=== PATIENT | female | born 1965 | race Caucasian/White ===

== ENCOUNTER 2016-06-19 08:13 | Inpatient (IN) ==
--- NOTE | 2016-06-19 08:50 | Emergency Department Note ---
IShaun Brooke, am scribing for, and in the presence of, Cecile Ivy DO 08:49 . IBiju Debra, DO, personally performed the services described in this documentation, ascribed by Shanda Dunn in my presence, and it is both accurate and complete 850 . Arrival - Arrival Chief Complaint: Abdominal / Flank Pain Stated Complaint: sob ED Nursing Triage Note: pt states while she was driving she had a sharp pain hit her in her epigastric/upper abd that radiated down to her lower abd- states she got short of breath and diaphoretic. pt reports having heart burn last night. Mode of Arrival: Ambulatory Limitations: No Limitations Source: Patient, RN Notes Reviewed Time Seen by Provider: 06/19/16 08:37 - History of Present Illness HPI Narrative: Patient is a 51 year old female who presents to the ED with c/o upper abdominal pain that radiates down into her LLQ. Patient says she has been having the pain , daily, for the past two months. She describes the pain as sharp and says at its worst, it is a 10 out of 10 on the pain scale. However, she says it is not that bad now. Patient was driving to work, this morning, when she experienced the sharp pain and says she also became diaphoretic. She says she does usually experience diaphoresis with the pain. She says the pain is worsened by certain movements. She still has her gallbladder and appendix. She also complains of nausea but denies any vomiting, fever, or chills. She does not have a history of alcohol abuse. She says she did have a similar episode, about four years ago , and states that she had H. Pylori. Patient says sometimes her throat feels like it is going to close but states she thinks it anxiety. Patient has no known medical problems. She has not had anything to eat since around 1930 last night. Patient take a baby ASA three times a week. Onset (ago): month(s) (2) Allergies/Adverse Reactions: Allergies Allergy/AdvReac Type Severity Reaction Status Date / Time No Known Allergies Allergy Verified 06/19/16 08:22 Review of System - Review of System 12 point system: reviewed and no additional remarkable complaints except as stated - Review of System Constitutional: Present: diaphoresis. Absent: chills, fever Respiratory: Absent: respiratory distress Gastrointestinal: Present: abdominal pain (Upper and radiates into LLQ), nausea. Absent: vomiting Skin: Absent: rash Medical,Surgical,& Family Hx - Medical History HEENT: History of: Ear Problem (surgery right ear) - Social History Smoking Status: Current every day smoker Frequency of Alcohol Use: None Type of Drug Use: None Exam Vital Signs: Vital Signs Temperature 98.6 F 06/19/16 08:18 Pulse Rate 76 06/19/16 08:18 Respiratory Rate 18 06/19/16 08:18 Blood Pressure 128/56 06/19/16 08:18 O2 Sat by Pulse Oximetry 96 06/19/16 08:18 - General General appearance: alert, in no apparent distress - Head Head exam: Present: atraumatic, normocephalic - Eye Eye exam: Present: normal appearance, PERRL, EOMI - ENT ENT exam: Present: normal exam - Neck Neck exam: Present: normal inspection - Chest Chest inspection: Present: normal inspection, symmetric chest wall rise - Respiratory Respiratory exam: Present: normal lung sounds bilaterally - Cardiovascular Cardiovascular exam: Present: regular rate, normal rhythm, normal heart sounds - Abdominal Exam Abdominal exam: Present: soft, tenderness (LUQ and RLQ). Absent: distention - Extremities Exam Extremities exam: Present: normal inspection - Back Exam Back exam: Present: normal inspection - Neurological Exam Neurological exam: Present: alert, oriented X3 - Psychiatric Psychiatric exam: Present: normal affect, normal mood - Skin Skin exam: Present: warm, dry, intact, normal color Results - Labs CBC & BMP: 06/19/16 08:39 06/19/16 08:39 Lab Results: I have reviewed the patients labs Labs: Laboratory Tests 06/19/16 06/19/16 08:39 08:39 Lymph % (Auto) 18.8 L Neut # (Auto) 8.0 H Phillips # (Auto) 1.3 H Chloride 111 H Laboratory Tests 06/19/16 08:39 Urine Urobilinogen < 2.0 H - Diagnostic Findings Procedure: Chest x-ray: report reviewed by me (No acute cardiopulmonary process demonstrated.), CT Abdomen and Pelvis: report reviewed by me (Fatty infiltration of the liver, minimal renal scarring and tiny right upper pole renal cyst. Diverticulosis of the colon. Prior tubal ligation. The wall of the right colon is thickened which could be related to colitis, inflammatory bowel disease, ischemic bowel, etc. Limited evaluation of bowel without oral contrast. Possible stenosis or other arterial pathology in the SMA approximately 24mm above the origin of the artery. Follow-up CTA mat be helpful for further evaluation.)
[2016-06-19 09:06] LABS: Basophils # 0.1 10*3/uL (0.0-0.2); Basophils % 0.4 % (0.0-0.8); Eosinophils # 0.1 10*3/uL (0.0-0.87); Eosinophils % 1.2 % (0.00-10.9); Hematocrit 45.1 VOL% (35.7-47.0); Hemoglobin 15.8 GM/DL (12.0-16.0); Immature Granulocytes % 0.3 %; Immature Granulocytes Absolute 0.04 #; Lymphocytes # 2.2 10*3/uL (1.4-4.0); Lymphocytes % 18.8 % (21.3-54.2); Mean Corpuscular Hemoglobin 32 PG (27-34); Mean Corpuscular Volume 92.2 FL (87-102); Mean Platelet Volume 10.1 FL (9.6-12.0); Monocytes # 1.3 10*3/uL (0.11-0.8); Monocytes % 10.7 % (1.7-12.7); Neutrophils % 68.6 % (38.7-73.9); Platelet Count 225 T/CUMM (130-400); Red Blood Count 4.89 MC/CUMM (3.8-5.5); Red Cell Distribution Width 13.1 % (9.3-17.3); White Blood Count 11.7 T/CUMM (4-12)
--- NOTE | 2016-06-19 09:07 | XRay Report ---
XR chest 1V portable Indication: Generalized abdominal pain, chest pain Comparison: None Technique: Single frontal view of the chest Findings: Heart size appears within normal limits. No focal consolidation, pleural effusion, or pneumothorax. Osseous and surrounding soft tissue structures demonstrate no acute normality. IMPRESSION: No acute cardiopulmonary process demonstrated. PROCEDURE INTERPRETED AT [facility] DEPARTMENT OF RADIOLOGY Final Report Signed by: Dr Chao Sierra
[2016-06-19 09:17] LABS: PT Patient Result 10.3 SECS
[2016-06-19 09:43] LABS: Alanine Aminotransferase 30 U/L (13-56); Albumin 3.8 G/DL (3.4-5.0); Alkaline Phosphatase 69 U/L (45-117); Aspartate Amino Transferase 17 U/L (0-37); Blood Urea Nitrogen 8 MG/DL (7-18); Calcium 9.1 MG/DL (8.5-10.1); Glucose 86 MG/DL (74-106); Osmolality,Calculated 282.8 MOS/KG (273-304); Potassium 4.1 MMOL/L (3.5-5.1); Sodium 144 MMOL/L (136-145); Total Protein 6.7 G/DL (6.4-8.3); Troponin I Only < 0.015 NG/ML (0.00-0.045)
[2016-06-19 10:02] LABS: Apearance,Urine CLEAR (Clear); Bacteria,Urine Occasional /HPF (Few); Bilirubin,Urine Negative (Negative); Blood, Urine Negative (Negative); Glucose,Urine (UA) Negative (Negative); Ketones,Urine Negative (Negative); Mucus,Urine Occasional /LPF (Occasional); Nitrite,Urine Negative (Negative); Protein,Urine Negative; RBC,Urine 1 /HPF (0-4); Squamous Epithelial Cell,Urine Occasional /HPF (0-10); Urine Color Yellow (Yellow); Urine Specific Gravity 1.021 (1.001-1.035); Urine Urobilinogen < 2.0 EU/DL (0.2-1.0); WBC,Urine 1 /HPF (0-6)
--- NOTE | 2016-06-19 10:45 | EKG Report ---
Stationary ECG Study [facility] ER Test Date: 06/19/2016 8:37:31 AM Pat Name: MARIA ELENA VASQUEZ Department: Room: Gender: F [place]: : 1965 Requested by: Cecile Ivy Order Number: [id number] Reading MD: INÉS MONIQUE Intervals [place] Rate: 75 P: 8 NH: 174 QRS: 1 QRSD: 80 T: 5 QT: 406 QTc: 434 Interpretive Statements SINUS RHYTHM Electronically Signed On 06-22-16 16:18:48 CDT by INÉS MONIQUE [email or web address]
--- NOTE | 2016-06-19 11:01 | CT Report ---
Referring physician: Cecile Ivy DO EXAM: CT abdomen and pelvis with contrast DATE: 06/19/2016 COMPARISON: None REASON: Generalized abdominal pain TECHNIQUE: Axial images of the abdomen and pelvis were obtained after administration of 100 cc of Omnipaque 350 IV contrast. Coronal and sagittal reformatted images were also provided. Total DLP is 894.4 mGy*cm. FINDINGS: The dependent findings in the lower lobes with cardiac fat pads. Elongation of the right lobe of the liver with fatty infiltration. No masses, dilated ducts are calcified gallstones. Calcified granuloma in normal size spleen. The pancreas and adrenal glands have an unremarkable appearance. Very minimal renal scarring and tiny right upper pole renal cyst. No renal or ureteral calculi. The abdominal aorta is normal in size with no adjacent adenopathy. Possible stenosis or other arterial pathology in the SMA approximately 24 mm above the origin. No significant dilatation of the small bowel. Diverticulosis of the colon with no evidence of diverticulitis, free air, or free fluid. The wall of the right colon is thickened. The uterus is anteverted and is position with small cysts/follicles in the ovaries. Prior tubal ligation. No acute osseous findings. IMPRESSION: Fatty infiltration of the liver, minimal renal scarring and tiny right upper pole renal cyst. Diverticulosis of the colon. Prior tubal ligation. The wall of the right colon is thickened which could be related to colitis, inflammatory bowel disease, ischemic bowel, etc. Limited evaluation of bowel without oral contrast. Possible stenosis or other arterial pathology in the SMA approximately 24 mm above the origin of the artery. Follow-up CTA may be helpful for further evaluation. The CT exam was performed using one or more of the following dose reduction techniques: Automated exposure control and adjustment of the mA and/or kV according to patient size. PROCEDURE INTERPRETED AT [facility] DEPARTMENT OF RADIOLOGY Final Report Signed by: Dr. Tabitha Samayoa
--- NOTE | 2016-06-19 12:43 | Hospitalist History & Physical ---
Assessment and Plan (1) Abdominal pain Status: Acute Assessment and plan: Admit patient to [facility]. IV fluids. Keep patient n.p.o. for now. Consult GI for recommendations. Current Visit: Yes History of Present Illness Chief complaint: abdominal pain History of present illness: Ms. Clark is a 51 year old female with a history of H. pylori and hypotension presents to the ED with complaints of upper abdominal pain that radiates down to her left lower quadrant. Patient states that while driving to work this morning she experienced a sharp pain that caused her to become short of breath and sweaty. Patient states the pain is worsened by certain movements. Patient denies any fever, chills, vomiting but reports nausea. Patient states that she has been having this pain daily for the last couple of months. Patient takes baby aspirin 3 times a week for cardiac protection has no other medical problems. She denies alcohol or drug abuse but is a everyday smoker. 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 The patient denies any other complaints in the ED at this time. Patient will be admitted to the hospitalist service for further evaluation and treatment Home Medications Medication Instructions Recorded Confirmed Type Aspirin [Aspirin EC] 81 mg PO Q3DAY 06/19/16 06/19/16 History Allergies Allergy/AdvReac Type Severity Reaction Status Date / Time No Known Allergies Allergy Verified 06/19/16 08:22 Medical,Surgical,& Family Hx - Medical History HEENT: History of: Ear Problem (surgery right ear) - Surgical History Surgical History: noncontributory - Family History Family History: Reports;: Family Heart Disease - Social History Smoking Status: Current every day smoker Frequency of Alcohol Use: None Type of Drug Use: None Marital Status: Single Lives With:: Alone Functional capacity: independent ambulation - Constitutional Constitutional: Absent: chills, fever(s) - EENT Eyes: Absent: loss of vision Ears: Absent: decreased hearing, ear discharge Nose, mouth and throat: Absent: dysphagia, headache(s) - Cardiovascular Cardiovascular: Present: dyspnea. Absent: chest pain at rest, edema - Respiratory Respiratory: Present: cough. Absent: wheezing - Gastrointestinal Gastrointestinal: Present: abdominal pain - Genitourinary Genitourinary: Absent: hematuria, urinary frequency - Musculoskeletal Musculoskeletal: Present: back pain. Absent: muscle weakness - Neurological Neurological: Absent: confusion, convulsions, headache(s) - Psychiatric Psychiatric: Absent: anxiety, confusion - Endocrine Endocrine: Absent: fatigue - Hematologic/Lymphatic Hematologic/Lymphatic: Absent: easy bleeding Exam - Constitutional Vitals: Period Temp Pulse Resp BP Sys/Gil Pulse Ox Last 24 Hr 98.6 F-98.6 F 76-76 18-18 128-128/56-56 96 General appearance: normal weight, no acute distress - Head Head exam: Present: normal inspection, normocephalic - Eye Eye exam: Present: EOMI. Absent: scleral icterus Pupils: Present: WARD. Absent: dilated - ENT ENT exam: Present: normal exam - Neck Neck exam: Present: normal inspection - Respiratory Respiratory exam: Present: other (coarse) - Cardiovascular Cardiovascular exam: Present: regular rate and rhythm - GI/Abdominal GI/Abdominal exam: Present: normal bowel sounds, tenderness, soft. Absent: guarding - Extremities Exam Extremities exam: Present: normal capillary refill, full ROM. Absent: edema - Neurological Exam Neurological exam: Present: alert, oriented X3, normal gait - Psychiatric Psychiatric exam: Present: normal affect, normal mood - Skin Skin exam: Present: normal color, warm, dry Results - Labs CBC & BMP: 06/19/16 08:39 06/19/16 08:39 Lab Results: I have reviewed the past 24 hour labs
[2016-06-19] MEDS ORDERED: NICOTINE 21 MG/24 HR PATCH TRANSDERM PRN (13:10)
[2016-06-19] MEDS ORDERED: ONDANSETRON 4 MG/2 ML VIAL IV PRN (13:10)
[2016-06-19] MEDS ORDERED: DOCUSATE SODIUM 100 MG CAPSULE PO PRN (13:10)
[2016-06-19] MEDS ORDERED: ACETAMINOPHEN 325 MG TABLET PO PRN (13:10)
[2016-06-19] MEDS: SODIUM CHLORIDE 0.9% 1,000 ML IV SCH ×2 (14:14→23:30)
[2016-06-19 15:07] LABS: Apearance,Urine CLEAR (Clear); Bilirubin,Urine Negative (Negative); Blood, Urine Negative (Negative); Glucose,Urine (UA) Negative (Negative); Ketones,Urine Negative (Negative); Mucus,Urine Occasional /LPF (Occasional); Nitrite,Urine Negative (Negative); Protein,Urine Negative; RBC,Urine 2 /HPF (0-4); Squamous Epithelial Cell,Urine Occasional /HPF (0-10); Urine Color Yellow (Yellow); Urine Specific Gravity > 1.060 (1.001-1.035); Urine Urobilinogen < 2.0 EU/DL (0.2-1.0); WBC,Urine <1 /HPF (0-6)
--- NOTE | 2016-06-19 16:54 | Event Note ---
I have seen and examined the patient and agree with the assessment plan as outlined by Montrell Fatima NP. Ms. Clark is a 51-year-old female presents with abdominal pain and CT reveals colitis with possible stenosis of the SMA. Patient denies any hematemesis or melena or bright blood per rectum. She denies having any episode of this pain before. She denies any diarrhea. Will admit the patient for evaluation and consult gastroenterology.
[2016-06-20 05:23] LABS: Basophils # 0.1 10*3/uL (0.0-0.2); Basophils % 0.5 % (0.0-0.8); Eosinophils # 0.2 10*3/uL (0.0-0.87); Eosinophils % 2.4 % (0.00-10.9); Hematocrit 42.3 VOL% (35.7-47.0); Hemoglobin 14.3 GM/DL (12.0-16.0); Immature Granulocytes % 0.2 %; Immature Granulocytes Absolute 0.02 #; Lymphocytes # 2.8 10*3/uL (1.4-4.0); Lymphocytes % 29.9 % (21.3-54.2); Mean Corpuscular HGB Conc 33.8 GM/DL (32-36); Mean Corpuscular Hemoglobin 31 PG (27-34); Mean Corpuscular Volume 92.2 FL (87-102); Mean Platelet Volume 10.3 FL (9.6-12.0); Monocytes # 1.1 10*3/uL (0.11-0.8); Monocytes % 11.3 % (1.7-12.7); Neutrophils # 5.2 10*3/uL (1.4-7.4); Neutrophils % 55.7 % (38.7-73.9); Platelet Count 208 T/CUMM (130-400); Red Blood Count 4.59 MC/CUMM (3.8-5.5); Red Cell Distribution Width 13.2 % (9.3-17.3); White Blood Count 9.3 T/CUMM (4-12)
[2016-06-20 06:11] LABS: Calcium 8.4 MG/DL (8.5-10.1); Osmolality,Calculated 285.7 MOS/KG (273-304); Potassium 4.3 MMOL/L (3.5-5.1); Risk Ratio 3.56; Thyroid Stimulating Hormone 2.91 uIU/ml (0.358-3.74)
[2016-06-20] MEDS: PANTOPRAZOLE 40 MG TABLET PO SCH (08:12)
--- NOTE | 2016-06-20 09:38 | Gastrointestinal Consult Note ---
Assessment and Plan - Time spent with patient Time spent with patient: Greater than 30 minutes (1) Abdominal pain Status: Acute Current Visit: Yes (2) Abnormal findings on diagnostic imaging of abdomen Status: Acute Current Visit: Yes (3) Other specified counseling Status: Acute Current Visit: Yes History of Present Illness History of present illness: Ms. 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 I have made a reasonable effort to review the information cited , but it is not a part of my evaluation, impression, or recommendation unless specifically discussed in the dictated text that follows. As well, voice recognition software was used in the creation of this clinical note. Reasonable effort was made to identify and correct gross errors. Despite proofreading, errors in morgue librarian may be present, including nonsense verbiage at times. If you encounter such an error, please contact me at for discussion and correction. -- Chiqui Chief complaint: abdominal pain History of present illness: This is a new patient, a 51-year-old female seen by consultation for evaluation of with persistent abdominal pain. The patient is admitted to hospitalist service under the care of Dr. Guzman with a primary diagnosis of same. The patient was admitted yesterday through the emergency department with primary complaint of upper abdominal pain radiating to her left lower quadrant. Evaluation at that time revealed normal blood counts , normal coagulation parameters, normal chemistries, but abnormal imaging of the colon and mesenteric vasculature as documented below. Since admission she has been treated conservatively with volume management and pain control as needed. She now reports some improvement but continued abdominal cramping. She notes this abdominal pain has been happening often on for at least two years. She is unaware of any personal history of peripheral vascular disease. She does note family history of coronary artery disease in her grandfather but not her mother or father. On review of systems, she also notes that she has had trouble with esophageal reflux periodically and has undergone upper endoscopy, about two years ago, with no finding at that time. She also knows that she has periodic dysphagia to solid. She is eating and drinking comfortably at present. Patient denies fever, chills, night sweats, rigors, headache, dizziness, neck pain, visual changes, redness of the eyes, odynophagia, difficulty chewing, chest pain, shortness of breath, regurgitation, hematemesis, diarrhea, hematochezia, melena, proctalgia, constipation, change in bowel pattern generally, dysuria, skin changes, temperature regulation issues, flushing, easy bleeding/bruising, musculoskeletal pain, mental status change, numbness/ weakness in the extremities, yellowing of the eyes/skin, cutaneous eruptions, family history of gastrointestinal cancer and colon polyps, and other complaints in general. Review of systems: 12 point review of systems was negative except as documented above. Outpatient medications: daily aspirin Inpatient medications: Tylenol, Colace, Goodwin, nicotine, Zofran, Protonix, sodium chloride infusion Past Medical History: gastroesophageal reflux Social history: positive tobacco. Negative alcohol Family history: no gastrointestinal cancers Physical examination: Vital Signs: Current vital signs reviewed and documented above. General Appearance: sitting at the bedside. Eating lunch. Comfortable. Head: Normocephalic. Neck: Palpation of the neck revealed no abnormalities. Eyes: No scleral icterus. No scleral injection. No conjunctival pallor. Oral Cavity: Odor of breath was normal. No drooling was observed. Lips showed no abnormalities. Floor of the mouth showed no abnormalities. Pharynx: Oropharynx was normal. Lungs: Respiration rhythm and depth was normal. Cardiovascular: Heart rate and rhythm were normal. No murmurs were appreciated. Abdomen: abdomen was not distended. Abdominal palpation revealed no tenderness and no hepatosplenomegaly. Ascites was not discovered. Abdominal auscultation revealed positive bowel sounds. Musculoskeletal System: Musculoskeletal system was grossly normal. Neurological: level of consciousness was normal. Speech was normal. Skin: General appearance was normal. Color and pigmentation were normal. No skin lesions. Laboratory: white blood count 9.3, hemoglobin 14.3, hematocrit 42.3, platelets 208, INR 1.0, PT 10.3, ALT 30, AST 17, total bilirubin 0.5, alkaline phosphatase 69, creatinine kinase 70, total protein 6.7, albumin 3.8, lipase 124 Radiology: CT of the abdomen and pelvis, June 19, 2016 -- fatty infiltration of the liver; diverticulosis of the colon; right colon wall thickening (limited due to lack of oral contrast); possible stenosis or other arterial pathology in the superior mesenteric artery Impressions: 1. Abdominal pain -- the differential diagnosis includes infectious/ inflammatory colitis, ischemic colitis, diverticulitis, irritable bowel, peptic ulcer, and others. I recommend continued supportive care for now. Strong consideration should be given to CT angiography for better characterization of the mesenteric supply. As well, patient will need colonoscopy for better characterization of these radiologic findings. We will tentatively plan the colonoscopy for Wednesday. 2. Nonspecific abnormal imaging of the right large intestine -- as discussed above, I recommend CT angiography for better characterization of the mesenteric vasculature and colonoscopy for better characterization of the large intestine. 3. Dysphagia -- the differential diagnosis includes highest hernia, esophageal ring, mechanical obstruction of the esophagus generally (including malignancy), esophageal dyskinesia, and oropharyngeal dysphagia. The patient will need upper endoscopy with timing based on clinical progress. We can do this during her admission if necessary but it would also be reasonable to pursue this in the outpatient setting. 4. Other specified counseling -- The patient was seen for greater than 30 minutes. The patient was counseled for greater than 50% of this time regarding differential diagnosis, likely diagnosis, diagnostic and therapeutic alternatives, risks/benefits/alternatives of medications and procedures, and plan of care generally. The patient expressed understanding and wishes to proceed. Recommendations: -- aggressive volume management -- consider CT angiography -- colonoscopy with timing based on clinical progress, likely Wednesday -- upper endoscopy with timing based on clinical progress, okay for outpatient -- thank you for this consultation. We will continue to follow with you.
--- NOTE | 2016-06-20 15:54 | Hospitalist Progress Note ---
Assessment and Plan - Time spent with patient Time spent with patient: Greater than 30 minutes (1) Colitis Status: Acute Assessment and plan: Defer to GI. Current Visit: Yes (2) Abnormal findings on diagnostic imaging of abdomen Status: Acute Assessment and plan: Of SMA. May need to repeat CT abd. Current Visit: Yes Hospitalist: Subjective Interval history: States she feels aweful. Looks very comfortable however. Reports back pain from the bed. Exam - Constitutional Vitals: Period Temp Pulse Resp BP Sys/Gil Pulse Ox Last 24 Hr 98.2 F-98.6 F 61-79 16-20 89-128/51-64 93-99 General appearance: no acute distress - Head Head exam: Present: normocephalic, atraumatic - Eye Eye exam: Present: EOMI Pupils: Present: WARD - ENT ENT exam: Present: normal exam - Neck Neck exam: Present: normal inspection - Respiratory Respiratory exam: Present: clear to auscultation bilaterally. Absent: rhonchi, wheezes - Cardiovascular Cardiovascular exam: Present: regular rate and rhythm. Absent: gallop, rubs, systolic murmur - GI/Abdominal GI/Abdominal exam: Present: normal bowel sounds, soft. Absent: distended, firm , guarding, tenderness, rebound - Extremities Exam Extremities exam: Present: normal inspection. Absent: calf tenderness, edema Results - Labs CBC & BMP: 06/20/16 05:01 06/20/16 05:01 Lab Results: I have reviewed the past 24 hour labs
[2016-06-21 06:37] LABS: Basophils # 0.1 10*3/uL (0.0-0.2); Basophils % 0.7 % (0.0-0.8); Eosinophils # 0.2 10*3/uL (0.0-0.87); Eosinophils % 2.9 % (0.00-10.9); Hematocrit 41.4 VOL% (35.7-47.0); Immature Granulocytes % 0.4 %; Immature Granulocytes Absolute 0.03 #; Lymphocytes # 2.9 10*3/uL (1.4-4.0); Mean Corpuscular HGB Conc 33.8 GM/DL (32-36); Mean Corpuscular Hemoglobin 31 PG (27-34); Mean Corpuscular Volume 92.8 FL (87-102); Mean Platelet Volume 10.5 FL (9.6-12.0); Monocytes # 0.9 10*3/uL (0.11-0.8); Monocytes % 11.2 % (1.7-12.7); Neutrophils # 3.6 10*3/uL (1.4-7.4); Neutrophils % 46.8 % (38.7-73.9); Platelet Count 199 T/CUMM (130-400); Red Blood Count 4.46 MC/CUMM (3.8-5.5); Red Cell Distribution Width 13.2 % (9.3-17.3); White Blood Count 7.6 T/CUMM (4-12)
[2016-06-21 07:10] LABS: Calcium 8.5 MG/DL (8.5-10.1); Osmolality,Calculated 285.8 MOS/KG (273-304); Potassium 4.1 MMOL/L (3.5-5.1)
[2016-06-21] MEDS: PANTOPRAZOLE 40 MG TABLET PO SCH (08:04)
--- NOTE | 2016-06-21 08:30 | Gastrointestinal Progress Note ---
Assessment and Plan (1) Abdominal pain Status: Acute Current Visit: Yes (2) Abnormal findings on diagnostic imaging of abdomen Status: Acute Current Visit: Yes (3) Other specified counseling Status: Acute Current Visit: Yes Exam (Progress Note) - Constitutional Vitals: Period Temp Pulse Resp BP Sys/Gil Pulse Ox Last 24 Hr 97.5 F-98.5 F 58-82 16-20 96-124/49-61 95-98 Results - Labs CBC & BMP: 06/21/16 05:58 06/21/16 05:58 Note Addendum: PLEASE NOTE -- automatic citation of patient information is unavoidable in this electronic note. I have made a reasonable effort to review the information cited , but it is not a part of my evaluation, impression, or recommendation unless specifically discussed in the dictated text that follows. As well, voice recognition software was used in the creation of this clinical note. Reasonable effort was made to identify and correct gross errors. Despite proofreading, errors in restaurant supervisor may be present, including nonsense verbiage at times. If you encounter such an error, please contact me at [phone] for discussion and correction. -- Chiqui Chief complaint: abdominal pain Subjective: This is a 51-year-old female seen for follow-up of persistent abdominal pain. Since admission she has been treated conservatively with volume management and pain control as needed. She now reports continued improvement with little abdominal cramping. She reports one bowel movement overnight, formed, without blood, mucus, or pass. She has been taking food without difficulty. Review of systems: 12 point review of systems was negative except as documented above. Inpatient medications: Tylenol, Colace, [place], nicotine, Zofran, Protonix, sodium chloride infusion Objective: Vital signs: Current vital signs reviewed and documented above. General Appearance: sitting at the bedside. Eating lunch. Comfortable. Head: Normocephalic. Neck: Palpation of the neck revealed no abnormalities. Eyes: No scleral icterus. No scleral injection. No conjunctival pallor. Oral Cavity: Odor of breath was normal. No drooling was observed. Lips showed no abnormalities. Floor of the mouth showed no abnormalities. Pharynx: Oropharynx was normal. Lungs: Respiration rhythm and depth was normal. Cardiovascular: Heart rate and rhythm were normal. No murmurs were appreciated. Abdomen: abdomen was not distended. Abdominal palpation revealed no tenderness and no hepatosplenomegaly. Ascites was not discovered. Abdominal auscultation revealed positive bowel sounds. Musculoskeletal System: Musculoskeletal system was grossly normal. Neurological: level of consciousness was normal. Speech was normal. Skin: General appearance was normal. Color and pigmentation were normal. No skin lesions. 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 Abdominal pain -- the patient reports some improvement compared to admission. As previously discussed, consideration should be given to CT angiography for better characterization of the mesenteric supply. As well, patient will need colonoscopy for better characterization of these radiologic findings. We will plan the colonoscopy for Wednesday. 2. Nonspecific abnormal imaging of the right large intestine -- see above. 3. Dysphagia -- The patient will need upper endoscopy with timing based on clinical progress. We can do this during her admission if necessary but it would also be reasonable to pursue this in the outpatient setting. 4. Other specified counseling -- The patient was seen for 30 minutes. The patient was counseled for greater than 50% of this time regarding differential diagnosis, likely diagnosis, diagnostic and therapeutic alternatives, risks/ benefits/alternatives of medications and procedures, and plan of care generally. The patient expressed understanding and wishes to proceed. Recommendations: -- aggressive volume management -- consider CT angiography -- colonoscopy Wednesday -- upper endoscopy with timing based on clinical progress, okay for outpatient -- thank you for this consultation. Dr. Brizuela will assume G.I. care for this patient tomorrow.
[2016-06-21] MEDS ORDERED: BISACODYL 5 MG TABLET PO ONE (12:00)
--- NOTE | 2016-06-21 12:59 | Hospitalist Progress Note ---
Assessment and Plan - Time spent with patient Time spent with patient: Greater than 30 minutes (1) Colitis Status: Acute Assessment and plan: Defer to GI. Current Visit: Yes (2) Abnormal findings on diagnostic imaging of abdomen Status: Acute Assessment and plan: Of SMA. May need to repeat CT abd angio. Current Visit: Yes Hospitalist: Subjective Interval history: No complaints, no overnight events. Exam - Constitutional Vitals: Period Temp Pulse Resp BP Sys/Gil Pulse Ox Last 24 Hr 97.5 F-98.5 F 63-82 16-20 105-124/52-61 95-98 General appearance: no acute distress - Head Head exam: Present: normocephalic, atraumatic - Eye Eye exam: Present: EOMI Pupils: Present: WARD - ENT ENT exam: Present: normal exam - Neck Neck exam: Present: normal inspection - Respiratory Respiratory exam: Present: clear to auscultation bilaterally. Absent: rhonchi, wheezes - Cardiovascular Cardiovascular exam: Present: regular rate and rhythm. Absent: gallop, rubs, systolic murmur - GI/Abdominal GI/Abdominal exam: Present: normal bowel sounds, soft. Absent: distended, firm , guarding, tenderness, rebound - Extremities Exam Extremities exam: Present: normal inspection. Absent: calf tenderness, edema Results - Labs CBC & BMP: 06/21/16 05:58 06/21/16 05:58 Lab Results: I have reviewed the past 24 hour labs
[2016-06-21] MEDS ORDERED: POLYETHYLENE GLYCOL 3350/ELECTROLYTES 4,000 ML BOTTLE PO ONE (18:00)
[2016-06-22] MEDS ORDERED: PROPOFOL 200 MG/20 ML VIAL IV ONE (12:34)
[2016-06-22] MEDS ORDERED: LIDOCAINE 1% 5 ML VIAL ONE (12:34)
--- NOTE | 2016-06-22 12:56 | History and Physical Update ---
History and Physical Update - Physical Exam Mental Status: alert and oriented Heart: regular rate and rhythm Lung: clear to auscultation Abdomen: within normal limits Vitals: within normal limits History and Physical Changes: 51-year-old female has had recent lower abdominal pain and had abnormal thickening in right colon on CT.
--- NOTE | 2016-06-22 12:57 | Gastrointestinal Progress Note ---
Assessment and Plan (1) Abdominal pain Status: Acute Assessment and plan: 06/22-abdominal pain slightly improved. No father coffee-ground emesis. Hemoglobin 11.1. Plan for EGD tomorrow to further evaluate. Plan an addendum to follow by Dr. Clemente. Current Visit: Yes Gastroenterology - PN: Subj Interval history: CC: Abdominal pain/coffee-ground emesis Patient is seen awake and alert lying in bed. States she is feeling about the same today. She has had no witnessed hematemesis or coffee-ground emesis on nursing staff other than on admission in the ER. She is complaining of a little bit of lower abdominal tenderness/discomfort. She is reported to have had a bowel movement on yesterday with no overt bleeding noted. Nursing staff states she has no appetite at this time. Hemoglobin stable 11.1 following 2 units of packed red blood cells. CT of abdomen on admission noted to show thickened right colon and questionable stenosis of the SMA. Abdomen is soft, mild tenderness. ROS: Denies shortness of breath or chest pain Exam (Progress Note) - Constitutional Vitals: Period Temp Pulse Resp BP Sys/Gil Pulse Ox Last 24 Hr 98.2 F-99.4 F 63-74 16-20 95-130/54-85 93-97 General appearance: normal weight, no acute distress - Head Head exam: Present: normal inspection, normocephalic - Eye Eye exam: Present: other (Lids and conjunctive are unremarkable). Absent: scleral icterus - ENT ENT exam: Present: normal exam, normal oropharynx - Neck Neck exam: Present: normal inspection - Respiratory Respiratory exam: Present: clear to auscultation bilaterally. Absent: rales, rhonchi, wheezes - Cardiovascular Cardiovascular exam: Present: regular rate and rhythm. Absent: diastolic murmur , JVD, systolic murmur - GI/Abdominal GI/Abdominal exam: Present: normal bowel sounds, tenderness, soft. Absent: ascites, distended, mass, organomegaly - Extremities Exam Extremities exam: Present: normal inspection, full ROM - Back Exam Back exam: Present: normal inspection - Neurological Exam Neurological exam: Present: alert, oriented X3 - Psychiatric Psychiatric exam: Present: normal affect, normal mood - Skin Skin exam: Present: normal color, warm, dry Results - Labs CBC & BMP: 06/21/16 05:58 06/21/16 05:58 Lab Results: I have reviewed the past 24 hour labs - Diagnostic Findings Procedure: CT Abdomen and Pelvis: report reviewed by me
--- NOTE | 2016-06-22 13:00 | Operative Note ---
Date of procedure: 06/22/16 Pre-op diagnosis: Lower abdominal pain, abnormal CT ascending colon Procedure: Procedure note: Colonoscopy with biopsies Physician: Dr. Leif Brizuela Brief clinical abstract: Patient is a 51-year-old female admitted with persistent lower abdominal pain the last few days. On CT there appeared to be some right colon thickening. She states that her weight is stable. She denies gross GI bleeding or weight loss. Endoscopic findings: After informed consent was obtained, the patient was placed in the left lateral decubitus position. Digital rectal exam was performed with no palpable abnormalities felt. Pediatric videocolonoscope was inserted into the rectum and advanced to the cecum without difficulty. Retroflex view within the cecum was performed back to the level of the hepatic flexure. The endoscope was advanced back to the cecum and on withdrawal colonic mucosa was carefully examined. Bowel prep was of good quality. In the proximal and mid ascending colon there were 2 areas of ulceration, each approximately 2 cm diameter. Multiple biopsies were obtained from these areas with consistency of this noted to be fairly soft. No polyps or masses were seen on withdrawal. There were scattered diverticuli throughout the colon. The endoscope was withdrawn in the rectum with retroflex view showing no abnormalities. The endoscope was removed and she appeared to tolerate the procedure well. Impression: #1 ascending colon ulceration-differential includes inflammatory bowel disease, nonsteroidal medication effect, ischemic colitis (location for this atypical) #2 diverticulosis coli Plan: Symptomatic treatment for now. Await pathology findings. Anesthesia: MAC Surgeon / Physician: Salinas Brizuela Estimated blood loss: minimal Specimens: other (Ascending colon ulceration) Condition: stable Disposition: post procedure unit Results - Labs CBC & BMP: 06/21/16 05:58 06/21/16 05:58 Discharge Plan - Discharge Medications No Action Aspirin [Aspirin EC] 81 mg PO Q3DAY - Follow Up or Referral - Forms/Instructions
--- NOTE | 2016-06-22 13:05 | Anesthesia Post-Op ---
Anesthesia Post OP - Post Ansesthetic Evaluation Patient seen in post op: Yes Resp: within normal limits CV: within normal limits Mental: within normal limits Temp: within normal limits Zeid-Sr-Itrswcgry: within normal limits Nausea and Vomiting: within normal limits Pain: within normal limits
[2016-06-22] MEDS: SODIUM CHLORIDE 0.9% 1,000 ML IV SCH ×3 (13:30→13:44)
[2016-06-22 13:34] VITALS: BP 124/85
[2016-06-22] MEDS: PANTOPRAZOLE 40 MG TABLET PO SCH (13:44)
--- NOTE | 2016-06-22 14:42 | CT Report ---
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 CT ANGIOGRAM ABDOMEN DLP: 296 mGy*cm. One or more of the following dose reduction techniques was used: Automated exposure control, adjustment of the mA and/or kV according the patient size, or use of iterative reconstruction techniques. Technique: Axial CT images of the abdomen were obtained during the arterial and venous phases of contrast injection. 3-D vascular MIPS reconstructions and multiplanar reformats were evaluated. Omnipaque 350, 100 cc. Comparison: Routine CT 06/19/2016 Arteriogram: Aorta is of normal caliber without stenosis or aneurysm. There is only trace amount of atheromatous disease distally. Celiac origin, SMA and solitary bilateral renal arteries are widely patent. [place] is patent as well. Visualized iliac arteries are widely patent. Abdomen: Normal heart size. Mild bibasilar atelectasis. Liver, contracted gallbladder, spleen, pancreas and adrenal glands remain unremarkable. No new renal lesions. Bowel is unremarkable. Impression: No evidence of SMA stenosis. PROCEDURE INTERPRETED AT [facility] DEPARTMENT OF RADIOLOGY Final Report Signed by: Maximo Willis M.D.
--- NOTE | 2016-06-22 15:09 | Discharge Summary ---
Hospital Course - Hospital Course Hospital Course: Ms. Clark was admitted with abdominal pain and CT findings concerning for focal colitis. Patient was seen in consultation by gastroenterology who performed a colonoscopy which revealed focal area of ulceration. This is biopsied. Patient also had a repeat of the CT angios to assess the SMA which revealed no evidence of stenosis which was suggested on the initial CT scan. By discharge patient had met maximum benefit of hospitalization was tolerating a diet well and will follow up with gastroenterology as an outpatient. I spent 32 minutes coordinating this discharge. - Time spent with patient Time with patient DS: Greater than 30 minutes Diagnosis - Discharge Diagnosis (1) Colitis Status: Acute (2) Abnormal findings on diagnostic imaging of abdomen Status: Acute Discharge Plan - Discharge Data Disposition: Disch To Home/Self Care Condition at Discharge: Stable Discharge Diet: advance to your usual diet - Discharge Medications New Nicotine 21 mg/24 Hr Patch [Nicoderm CQ 21 mg/24 hr Patch] 1 patch TRANSDERM DAILY PRN #30 patch PRN Reason: Nicotine Cravings Discontinued Aspirin [Aspirin EC] 81 mg PO Q3DAY - Follow Up or Referral - Forms/Instructions Exam - Constitutional Vitals: Period Temp Pulse Resp BP Sys/Gil Pulse Ox Last 24 Hr 98.2 F-99.4 F 60-74 12-20 95-130/54-85 93-99 General appearance: normal weight, no acute distress - Head Head exam: Present: normal inspection, normocephalic, atraumatic - Eye Eye exam: Present: EOMI Pupils: Present: WARD - ENT ENT exam: Present: normal exam - Neck Neck exam: Present: normal inspection - Respiratory Respiratory exam: Present: clear to auscultation bilaterally. Absent: accessory muscle use, prolonged expiratory phase, wheezes - Cardiovascular Cardiovascular exam: Present: regular rate and rhythm. Absent: bradycardia, irregular rhythm, systolic murmur - GI/Abdominal GI/Abdominal exam: Present: normal bowel sounds. Absent: ascites, distended, hypoactive bowel sounds, tenderness - Extremities Exam Extremities exam: Absent: normal inspection DS: Provider Date of admission: 06/19/16 12:20 Primary care physician: . No PCP Attending physician on admission: Luba Guzman MD Consults: 06/19/16 13:10 Consult to Physician [CONS] Routine Comment: Consulting Provider: Salinas Brizuela Consulting Provider Notified: Yes Person Notified: dr walter Date Notified: 06/20/16 Time Notified: 07:30 Consult Notification Comment: called [phone] Notified per Hortensia Mckenna RN SPOKE TO [facility] ON WEDNESDAY Discharging clinician: Luba Guzman MD Expected date of discharge: 06/22/16
== END 2016-06-22 16:00 | disposition home or self-care (01) | DRG 392 ==
LOC: N.ED 08:13 → N.EDINP 12:20 → N.2E 13:00
PROVIDERS: ADMIT Internal Medicine; ATTEND Internal Medicine
PROC: COLONBX (2016-06-22 11:05)